=== PATIENT | male | born 1955 | race Caucasian/White ===

== ENCOUNTER 2023-05-18 06:08 | Emergency (ER) | payer OTHER, MEDICARE, SELFPAY ==
[2023-05-18 06:15] VITALS: BP 119/74; PULSE 107; RESP 18; TEMP 36.9; O2SAT 94
[2023-05-18 06:36] VITALS: BP 119/75; PULSE 104; RESP 23; O2SAT 91
--- NOTE | 2023-05-18 06:39 | XRR_ITS ---
PROCEDURE INFORMATION: Exam: XR Chest Exam date and time: 05/18/2023 7:08 AM Age: 68 years old Clinical indication: Cough TECHNIQUE: Imaging protocol: Radiologic exam of the chest. Views: 1 view. COMPARISON: No relevant prior studies available. FINDINGS: Lungs: Streaky bibasilar atelectasis. No consolidation. Pleural spaces: Unremarkable. No pleural effusion. No pneumothorax. Heart/Mediastinum: Unremarkable. No cardiomegaly. Bones/joints: Unremarkable. XR/XR chest 1V portable [id number] IMPRESSION: No acute findings.
--- NOTE | 2023-05-18 06:41 | W.ED.WEAKNES ---
HPI - Weakness General: Chief complaint: Weakness Stated complaint: weakness Time Seen by Provider: 05/18/23 06:26 History of Present Illness: 68-year-old male presents emergency department with complaints of cough fatigue and malaise worse over the previous 1 week. He states he has been exposed to several sick contacts with similar illnesses. He states he does have a dry nonproductive cough and feels generalized myalgias. He states he feels increasingly weak and has not had much energy to eat Associated symptoms: Reports fever(s) and nausea Review of Systems General: Reports: 10 or more systems reviewed and unremarkable except in HPI and below Const: Reports: fever(s), body aches, fatigue and malaise Resp: Reports: non-productive cough GI: Reports: nausea PFSH ED PFSH: Medical History Diabetes Hypertension Stroke Surgical History Hx of eye surgery Social History Smoking and tobacco/nicotine status: never used tobacco/nicotine Physical Exam Narrative: EXAM NARRATIVE: Constitutional: the patient appears well nourished and with normal development. Vital signs reviewed as documented. HENMT: Normocephalic, atraumatic. Extermal ears with normal appearance without drainage. Nose without drainage, normal appearance. Mucus membranes moist. Neck is supple, No jugular venous distension, trachea is midline, no appreciable carotid bruits. No lymphadenopathy. No meningeal signs. Flexion, extension and lateral rotation is without pain. Eyes: Pupils are equal, round, reactive to light and accommodation. No scleral icterus. Extra-ocular movement are intact. Thorax is symmetrical and with equal rise and fall with respirations. Resp: Lungs are clear to auscultation. No wheezes, rales, crackles or ronchi at present. Cardio: Regular rate and rhythm. Positive S1, S2. No appreciable murmurs, rubs or gallops. GI: Abdominal exam reveals normal bowel sounds to all quadrants. No organomegaly. No obvious palpable masses noted. No hepatomegally appreciated. Soft, nontender to palpation. Extremity: Extremities are non-edematous and both femoral and pedal pulses are 2+ and equal bilaterally. Moves all extremities well, sensation in all extremities. Neuro: Alert and oriented x4, person, place, time and situation. Cranial nerves II through XII are grossly intact, there is no focal neurological deficits that I can appreciate at present. Motor strength in the upper and lower extremities are equal and bilateral 5/5. Psych: Cooperative, calm, normal thought process, appropriate judgment. Skin: No lesions, rashes. No gross abnormalities noted. Back: Symmetrical, no obvious deformity, No CVA tenderness Course Vital Signs: Vital signs: Vital Signs Temperature 98.4 F 05/18/23 06:15 Pulse Rate 102 H 05/18/23 06:51 Respiratory Rate 21 H 05/18/23 06:51 Blood Pressure 119/75 05/18/23 06:51 Pulse Oximetry 94 05/18/23 07:10 Oxygen Delivery Me thod Nasal Cannula 05/18/23 07:10 Oxygen Flow Rate 2.5 05/18/23 07:10 MDM - Weakness Medical Decision Making Physical exam completed, will obtain a CBC, CMP, strep screen, COVID screen and influenza a and B as well as a chest x-ray for evaluation. Medical Records I reviewed the patient's medical records. Lab Data I reviewed the patient's lab results. 05/18/23 06:23 05/18/23 06:23 Radiology Impressions Chest X-Ray 05/18/23 06:39 IMPRESSION: No acute findings. Laboratory Results WBC 13.06 10^3/uL (3.29-11.43) H 05/18/23 06:23 RBC 4.86 10^6/uL (3.85-5.65) 05/18/23 06:23 Hgb 14.40 g/dL (11.27-16.99) 05/18/23 06:23 Hct 43.0 % (37-53) 05/18/23 06:23 MCV 88.5 fl (82-101) 05/18/23 06:23 MCH 29.6 pg (27-33) 05/18/23 06: MCHC 33.5 g/dL (30-55) 05/18/23 06:23 RDW 14.2 % (12.1-15.1) 05/18/23 06:23 Plt Count 256 10^3/cmm (157-399) 05/18/23 06:23 MPV 10.0 fL (7.4-10.4) 05/18/23 06: Neut % (Auto) 78.3 % 05/18/23 06: Lymph % (Auto) 12.0 % 05/18/23 06: [place] % (Auto) 9.0 % 05/18/23 06: Eos % (Auto) 0.0 % 05/18/23 06: Baso % (Auto) 0.2 % 05/18/23 06: Neut # (Auto) 10.24 10^3/uL (1.8-7.7) H 05/18/23 06:23 Lymph # (Auto) 1.6 10^3/uL (0.8-4.8) 05/18/23 06: [place] # (Auto) 1.2 10^3/uL (0.2-0.9) H 05/18/23 06:23 Eos # (Auto) 0.0 10^3/uL (0.0-0.8) 05/18/23 06: Baso # (Auto) 0.0 10^3/uL (0.0-0.1) 05/18/23 06: Nucleated RBC % (auto) 0 % 05/18/23 06: Nucleated RBCs # 0.0 /100WBC 05/18/23 06:23 Sodium 133 mmol/L (136-145) L 05/18/23 06:23 Potassium 3.6 mmol/L (3.5-5.1) 05/18/23 06:23 Chloride 89 mmol/L (98-107) L 05/18/23 06:23 Carbon Dioxide 24 mmol/L (22-29) 05/18/23 06:23 Anion Gap 23.6 (5-19) H 05/18/23 06:23 BUN 22 mg/dL (8-23) 05/18/23 06:23 Creatinine 1.5 mg/dL (0.7-1.2) H 05/18/23 06:23 GFR Calculation 46.8 mL/min (90-130) L 05/18/23 06:23 Glucose 255 mg/dL (65-115) H 05/18/23 06:23 Calculated Osmolality 288 mOsm/kg (285-295) 11/26/23 06:23 Calcium 9.2 mg/dL (8.5-10.5) 05/18/23 06:23 Total Bilirubin 0.5 mg/dL (0.15-1.2) 05/18/23 06:23 AST 30 U/L (0-40) 05/18/23 06:23 ALT 48 U/L (0-41) H 05/18/23 06:23 Alkaline Phosphatase 90 U/L (40-130) 05/18/23 06:23 Total Protein 8.1 g/dL (6.6-8.7) 05/18/23 06:23 Albumin 4.2 g/dL (3.5-5.2) 05/18/23 06:23 Globulin 3.9 g/dL (1.3-4.6) 05/18/23 06:23 Influenza Type A Ag negative (Negative) 05/18/23 06:51 Influenza Type B Ag negative (Negative) 05/18/23 06:51 SARS-CoV-2 Ag (Rapid) positive (Negative) H 05/18/23 07:01 Group A Strep Rapid Negative (Negative) 05/18/23 06:51 All radiology interpretation(s) finalized by discharge Discharge Plan Discharge Patient Disposition: Home Clinical Impression: COVID-19 Condition: Stable Prescriptions: New dexamethasone 6 mg tablet 6 mg PO DAILY Qty: 7 0RF albuterol sulfate 90 mcg/actuation HFA aerosol inhaler 2 inh inhalation Q4H PRN (Reason: shortness of breath or wheezing) Qty: 8.5 0RF benzonatate 100 mg capsule 100 mg PO Q6H PRN (Reason: cough) Qty: 20 0RF No Action metformin 500 mg tablet 500 mg PO DAILY Trulicity 0.75 mg/0.5 mL pen injector SUBCUT insulin glargine [Lantus U-100 Insulin] 100 unit/mL solution 10 unit SUBCUT BID Zyrtec 10 mg capsule 10 mg PO DAILY PRN Discharge Orders: Discharge ED (Routine); Ordered 05/18/23 Ordered By: Jonathon Escamilla Referrals: Baumann,Genna, PRODUCTION SHIFT SUPERVISOR [Primary Care Provider] - Discharge Diet: Advance as tolerated Discharge Activity: Resume usual activity Patient Instructions: Opioid Safety, Pain Management Activity Restrictions/Additional Instructions: Activity Restrictions/Additional Instructions: Thank you for choosing [facility] for your healthcare needs today. Please realize that you were seen in the Emergency Department and that we are providing you with an emergency medical screening exam and this may not be complete and all inclusive of all the testing and or medical work-up that you may need to determine your ailment or severity of your illness. It is very important that you follow-up as instructed with your Primary care provider or Specialist for additional evaluation and to discuss your medical treatment plan. You may return to the Emergency Department should you have concerns or if your condition changes or worsens in any way. Coding Level of Care Code ED Aeronautical Drafter for [place]
[2023-05-18 06:46] LABS: Basophils % 0.2 %; Lymphocytes # 1.6 10^3/uL (0.8-4.8); Mean Corpuscular HGB Conc 33.5 g/dL (30-55); Mean Corpuscular Hemoglobin 29.6 pg (27-33); Mean Corpuscular Volume 88.5 fl (82-101); Monocytes # 1.2 10^3/uL (0.2-0.9); Neutrophils # 10.24 10^3/uL (1.8-7.7); Neutrophils % 78.3 %; Nucleated Red Blood Cells % 0 %; Platelet Count 256 10^3/cmm (157-399); Red Blood Count 4.86 10^6/uL (3.85-5.65); Red Cell Distribution Width 14.2 % (12.1-15.1); White Blood Count 13.06 10^3/uL (3.29-11.43)
[2023-05-18 06:51] VITALS: BP 119/75; PULSE 102; RESP 21; O2SAT 91
[2023-05-18 07:10] VITALS: O2SAT 94
--- NOTE | 2023-05-18 07:11 | PC.NURSE ---
Got report from IBIS Henriquez and he stated patient's oxygen sats had been dropping in to the 80's at times. I continued to observe the patient's oxygen drop into the 80's so I placed the patient on 2.5 liter of oxygen via nasal cannula.
[2023-05-18 07:15] LABS: Alanine Aminotransferase 48 U/L (0-41); Albumin Level 4.2 g/dL (3.5-5.2); Alkaline Phosphatase 90 U/L (40-130); Anion Gap 23.6 (5-19); Aspartate Amino Transferase 30 U/L (0-40); Blood Urea Nitrogen 22 mg/dL (8-23); Calcium 9.2 mg/dL (8.5-10.5); Carbon Dioxide 24 mmol/L (22-29); Chloride 89 mmol/L (98-107); Globulin 3.9 g/dL (1.3-4.6); Glomerular Filtration Rate 46.8 mL/min (90-130); Glucose 255 mg/dL (65-115); Osmolality Calculated 288 mOsm/kg (285-295); Potassium 3.6 mmol/L (3.5-5.1); Sodium 133 mmol/L (136-145); Total Bilirubin 0.5 mg/dL (0.15-1.2); Total Protein 8.1 g/dL (6.6-8.7)
[2023-05-18 07:54] LABS: Influenza A by IFA negative (Negative); Influenza B by IFA negative (Negative)
[2023-05-18 07:58] LABS: Rapid Strep A Test Negative (Negative)
[2023-05-18 07:59] LABS: SARS Covid-2 Antigen positive (Negative)
[2023-05-18] MEDS: sodium chloride 0.9% 1,000 ML 999 ML IV (08:02)
== END 2023-05-18 09:18 | disposition home or self-care (01) ==
PROVIDERS: Emergency Provider Internal Medicine; PCP Nurse Practitioner Family
DX: U07.1 COVID-19 (principal); Z79.85 Long-term (current) use of injectable non-insulin antidiabetic drugs; Z79.84 Long term (current) use of oral hypoglycemic drugs; Z79.4 Long term (current) use of insulin; E11.9 Type 2 diabetes mellitus without complications; I10 Essential (primary) hypertension; Z86.73 Personal history of transient ischemic attack (TIA), and cerebral infarction without residual deficits
CPT/HCPCS: 71045; 80053; 85025; 87081; 87426; 87804; 87880; 96360; 99284; J7030

== ENCOUNTER 2023-05-20 16:51 | Inpatient (IN) | payer OTHER, MEDICARE, SELFPAY ==
[2023-05-20] VITALS (24 sets, daily range): BP systolic 77–133; BP diastolic 43–75; PULSE 69–81; RESP 15–21; TEMP 37–37.4; O2SAT 88–96; BMI 27.9; BMI 30.7
--- NOTE | 2023-05-20 17:14 | XRR_ITS ---
PROCEDURE INFORMATION: Exam: XR Chest Exam date and time: 05/20/2023 5:22 PM Age: 68 years old Clinical indication: Cough and shortness of breath; Additional info: SOB TECHNIQUE: Imaging protocol: Radiologic exam of the chest. Views: 1 view. COMPARISON: CR (CHEST, ) 05/18/2023 7:08 AM FINDINGS: Lungs: Low lung volumes. No focal consolidation. Bibasilar atelectasis. Pleural spaces: No pleural effusion. No pneumothorax. Heart/Mediastinum: No cardiomegaly. Bones/joints: No acute findings. XR/XR chest 1V portable [id number] IMPRESSION: No acute findings.
--- NOTE | 2023-05-20 17:14 | ECG_ITS ---
[facility] Test Date: 2023-05-20 Pat Name: Moi Jones Department: Room: Gender: Male Hook Up Driver: : [id number] Requested By: Branden Soria Order Number: [id number] Henry MD: Jennifer Pascal M.D. Measurements Intervals [place] Rate: 75 P: 41 [place]: 147 QRS: 14 QRSD: 98 T: 21 QT: 401 QTc: 449 Interpretive Statements SINUS RHYTHM Normal EKG No previous ECG available for comparison Electronically Signed On 05-22-2023 16:51:08 GANG HEMSTITCHING MACHINE OPERATOR by Jennifer Pascal M.D. [id number]
--- NOTE | 2023-05-20 17:20 | ED_ITS ---
HPI - COVID 2 General: Chief Complaint: COVID symptoms Stated Complaint: Low BP / Covid + Time Seen by Provider: 05/20/23 16:56 Source: patient and EMS Mode of arrival: EMS Limitations: no limitations History of Present Illness: 68-year-old male who has a recent COVID- positive test he states he has had increasing weakness and malaise. Patient was found to be hypotensive as well and having increasing shortness of breath. He is hypotensive. Denies any vomiting or chest pain. COVID 19 common symptoms: positive dyspnea and fatigue; negative fever(s), chills, body aches, headache(s), throat pain, nausea, vomiting or diarrhea COVID 19 other sytmptoms: negative chest pain COVID Results: 2 SARS-CoV-2 Antigen (Rapid) positive (Negative) H 05/18/23 07:0 1 Review of Systems 2 Const: Reports: fatigue; Denies: fever(s), chills, body aches or change in appetite ENMT: Denies: throat pain or dental pain Card: Denies: chest pain Resp: Reports: dyspnea GI: Denies: abdominal pain, nausea, vomiting or diarrhea : Denies: dysuria Musc: Denies: neck pain or back pain Skin/Breast: Denies: rash Neuro: Denies: headache(s) PFSH ED 2 PFSH: Medical History Hypertension Diabetes Stroke Surgical History Hx of eye surgery Social History Smoking and tobacco/nicotine status: never used tobacco/nicotine Physical Exam 2 Const: COMMON NORMALS: patient oriented x3 GENERAL APPEARANCE: ill appearing HENMT: COMMON NORMALS: normocephalic and atraumatic HEAD & SCALP: n ormocephalic and atraumatic Eye: COMMON NORMALS: Equal, round and reactive pupils present and EOMs intact bilaterally PUPIL: Yes Equal, round and reactive pupils present Neck/C-Spine: COMMON NORMALS: full ROM and supple Chest: COMMONS NORMALS: normal inspection of the chest and normal palpation of entire chest wall Resp: COMMON NORMALS: normal respiratory effort, No retractions, No use of accessory muscles and clear to auscultation bilaterally AUSCULTATION: clear to auscultation bilaterally Cardio: COMMON NORMALS: regular rate, regular rhythm and No murmurs present (Cardio) RATE: regular rate RHYTHM: regular rhythm GI: COMMON NORMALS: Normal to inspection, nondistended, normoactive bowel sounds present, Soft to palpation, non-tender and no masses PALPATION: Yes Soft to palpation Extremity: COMMON NORMALS: normal to inspection and full ROM Neuro: COMMON NORMALS: patient oriented x3, moves all extremities and no focal motor deficits Psych: COMMON NORMALS: mental status grossly normal, Normal thought process present and cooperative THOUGHT PROCESS: Normal thought process present Skin: COMMON NORMALS: no rashes or lesions noted and no wounds GENERAL SKIN EXAM: no rashes or lesions noted Course 2 Vital Signs: Vital signs: Vital Signs Temperature 99.4 F 05/20/23 17:00 Pulse Rate 73 05/20/23 19:15 Respiratory Rate 19 H 05/20/23 19:15 Blood Pressure 100/56 05/20/23 19:15 Pulse Oximetry 94 05/20/23 19:15 Oxygen Delivery Me thod Room Air 05/20/23 18:20 MDM - COVID Medical Decision Making Patient presents here with COVID having increased weakness he was hypotensive here. Dehydrated his blood pressure improved after fluids will admit for observation at this time. Medical Records I reviewed the patient's medical records. Lab Data I reviewed the patient's lab results. 05/20/23 18:25 05/20/23 18:25 Radiology Impressions Chest X-Ray 05/20/23 17:14 IMPRESSION: No acute findings. Laboratory Results WBC 9.65 10^3/uL (3.29-11.43) 05/20/23 18:25 RBC 3.84 10^6/uL (3.85-5.65) L 05/20/23 18:25 Hgb 11.40 g/dL (11.27-16.99) 05/20/23 18:25 Hct 34.6 % (37-53) L 05/20/23 18:25 MCV 90.1 fl (82-101) 05/20/23 18:25 MCH 29.7 pg (27-33) 05/20/23 18:25 MCHC 32.9 g/dL (30-55) 05/20/23 18:25 RDW 14.3 % (12.1-15.1) 05/20/23 18:25 Plt Count 227 10^3/cmm (157-399) 05/20/23 18:25 MPV 10.3 fL (7.4-10.4) 05/20/23 18:25 Neut % (Auto) 86.0 % 05/20/23 18:25 Lymph % (Auto) 5.6 % 05/20/23 18:25 [place] % (Auto) 7.2 % 05/20/23 18:25 Eos % (Auto) 0.0 % 05/20/23 18:25 Baso % (Auto) 0.2 % 05/20/23 18:25 Neut # (Auto) 8.30 10^3/uL (1.8-7.7) H 05/20/23 18:25 Lymph # (Auto) 0.5 10^3/uL (0.8-4.8) L 05/20/23 18:25 [place] # (Auto) 0.7 10^3/uL (0.2-0.9) 05/20/23 18:25 Eos # (Auto) 0.0 10^3/uL (0.0-0.8) 05/20/23 18:25 Baso # (Auto) 0.0 10^3/uL (0.0-0.1) 05/20/23 18:25 Nucleated RBC % (auto) 0 % 05/20/23 18:25 Nucleated RBCs # 0.0 /100WBC 05/20/23 18:25 PT 14.20 SECONDS (12.1-14.9) 05/20/23 18:25 INR 1.06 (0.8-1.2) 05/20/23 18:25 Specimen Type Arterial 05/20/23 17:29 Sample Site Radial, right 05/20/23 17:29 ABG pH 7.43 (7.35-7.45) 05/20/23 17:29 ABG pCO2 40.4 mmHg (35-45) 05/20/23 17:29 ABG pO2 64.8 mmHg (80.0-100.0) L 05/20/23 17:29 ABG PO2/FiO2 Ratio 0 05/20/23 17:29 ABG HCO3 26.7 mmol/L (22-26) H 05/20/23 17:29 ABG Base Excess 2.1 mmol/L (-2.0-2.0) H 05/20/23 17:29 Evan Test Pos 05/20/23 17:29 Hematocrit 34.5 % (42-52) L 05/20/23 17:29 Hgb O2 Saturation 93.0 % (95-100) L 05/20/23 17:29 Carboxyhemoglobin 1.3 %THgb (0.4-20.1) 05/20/23 17:29 Methemoglobin < 0.0 % (0.4-1.5) L 05/20/23 17: Total Hemoglobin 11.3 g/dL (14-18) L 05/20/23 17:29 O2 Delivery Device Room air 05/20/23 17: FiO2 21.0 % 05/20/23 17:29 Clinical Exercise Specialist ID [place] 05/20/23 17:29 Sodium 136 mmol/L (136-145) 05/20/23 18:25 Potassium 3.6 mmol/L (3.5-5.1) 05/20/23 18:25 Chloride 98 mmol/L (98-107) 05/20/23 18:25 Carbon Dioxide 24 mmol/L (22-29) 05/20/23 18:25 Anion Gap 17.6 (5-19) 05/20/23 18:25 BUN 36 mg/dL (8-23) H 05/20/23 18:25 Creatinine 1.4 mg/dL (0.7-1.2) H 05/20/23 18:25 GFR Calculation 50.7 mL/min (90-130) L 05/20/23 18:25 Glucose 245 mg/dL (65-115) H 05/20/23 18:25 Calculated Osmolality 298 mOsm/kg (285-295) H 05/20/23 18:25 Lactic Acid 2.5 mmol/L (0.5-2.2) H 05/20/23 18:25 Calcium 7.9 mg/dL (8.5-10.5) L 05/20/23 18:25 Total Bilirubin 0.5 mg/dL (0.15-1.2) 05/20/23 18:25 AST 40 U/L (0-40) 05/20/23 18:25 ALT 46 U/L (0-41) H 05/20/23 18:25 Alkaline Phosphatase 59 U/L (40-130) 05/20/23 18:25 Total Protein 6.5 g/dL (6.6-8.7) L 05/20/23 18:25 Albumin 3.2 g/dL (3.5-5.2) L 05/20/23 18:25 Globulin 3.3 g/dL (1.3-4.6) 05/20/23 18:25 2 SARS-CoV-2 Antigen (Rapid) positive (Negative) H 05/18/23 07:0 1 All radiology interpretation(s) finalized by discharge EKG Data EKG 1: I personally reviewed and interpreted this EKG as follows: EKG interpretation date: 05/20/23 EKG interpretation time: 17:27 Interpretation: nsr hr [address] or t wave abnormalities qrs 98 qtc 430 Discharge Plan Discharge Patient Disposition: Admitted As Inpatient Clinical Impression: COVID-19, Dehydration Condition: Stable Prescriptions: No Action metformin 500 mg tablet 500 mg PO DAILY Trulicity 0.75 mg/0.5 mL pen injector SUBCUT insulin glargine [Lantus U-100 Insulin] 100 unit/mL solution 10 unit SUBCUT BID Zyrtec 10 mg capsule 10 mg PO DAILY PRN dexamethasone 6 mg tablet 6 mg PO DAILY Qty: 7 0RF albuterol sulfate 90 mcg/actuation HFA aerosol inhaler 2 inh inhalation Q4H PRN (Reason: shortness of breath or wheezing) Qty: 8.5 0RF benzonatate 100 mg capsule 100 mg PO Q6H PRN (Reason: cough) Qty: 20 0RF Referrals: Baumann,Genna, LEAD PROJECT ENGINEER [Primary Care Provider] - Coding Level of Care Code ED Network Systems Administrator for [place]
[2023-05-20 17:42] LABS: ABG PCO2 40.4 mmHg (35-45); ABG PH Result 7.43 (7.35-7.45); Arterial Blood Gas Hematocrit 34.5 % (42-52); Base Excess ABG 2.1 mmol/L (-2.0-2.0); Blood Gas Allen Test Pos; Blood Gas Operator Identificat MONRO; Blood Gas Sample Site Radial, right; Blood Gas Sample Type Arterial; Carboxyhemoglobin 1.3 %THgb (0.4-20.1); HCO3 ABG 26.7 mmol/L (22-26); Methemoglobin < 0.0 % (0.4-1.5); Oxygen Device ROOM AIR; PO2 ABG 64.8 mmHg (80.0-100.0); PO2 FiO2 Ratio Arterial Blood 0; Total Hemoglobin 11.3 g/dL (14-18)
[2023-05-20] MEDS: cefTRIAXone 1,000 MG in sodium chloride 0.9% (plus) 50 ML 100 MG IV (18:24)
[2023-05-20] MEDS: azithromycin 500 MG in sodium chloride 0.9% 250 ML 250 MG IV (18:49)
[2023-05-20 19:01] LABS: Basophils % 0.2 %; Hematocrit 34.6 % (37-53); Lymphocytes # 0.5 10^3/uL (0.8-4.8); Lymphocytes % 5.6 %; Mean Corpuscular HGB Conc 32.9 g/dL (30-55); Mean Corpuscular Hemoglobin 29.7 pg (27-33); Mean Corpuscular Volume 90.1 fl (82-101); Mean Platelet Volume 10.3 fL (7.4-10.4); Monocytes # 0.7 10^3/uL (0.2-0.9); Monocytes % 7.2 %; Nucleated Red Blood Cells % 0 %; Platelet Count 227 10^3/cmm (157-399); Red Blood Count 3.84 10^6/uL (3.85-5.65); Red Cell Distribution Width 14.3 % (12.1-15.1); White Blood Count 9.65 10^3/uL (3.29-11.43)
[2023-05-20 19:20] LABS: INR 1.06 (0.8-1.2)
[2023-05-20 19:22] LABS: Alanine Aminotransferase 46 U/L (0-41); Albumin Level 3.2 g/dL (3.5-5.2); Alkaline Phosphatase 59 U/L (40-130); Aspartate Amino Transferase 40 U/L (0-40); Blood Urea Nitrogen 36 mg/dL (8-23); Calcium 7.9 mg/dL (8.5-10.5); Carbon Dioxide 24 mmol/L (22-29); Chloride 98 mmol/L (98-107); Globulin 3.3 g/dL (1.3-4.6); Glomerular Filtration Rate 50.7 mL/min (90-130); Glucose 245 mg/dL (65-115); Osmolality Calculated 298 mOsm/kg (285-295); Sodium 136 mmol/L (136-145); Total Bilirubin 0.5 mg/dL (0.15-1.2); Total Protein 6.5 g/dL (6.6-8.7)
[2023-05-20 19:23] LABS: Lactic Sepsis W/Reflex 2.5 mmol/L (0.5-2.2)
[2023-05-20 19:32] LABS: Anion Gap 17.6 (5-19); Potassium 3.6 mmol/L (3.5-5.1)
--- NOTE | 2023-05-20 19:33 | P.HP_ITS ---
Providers/Chief Complaint 2 Primary Care Provider: GEOVANNA Velez Chief Complaint: Low BP / Covid + History of Present Illness Moi Jones is a 68 year old male who was diagnosed with COVID-19 this Friday, he started experiencing symptoms last around , patient was discharged home after he was diagnosed with COVID-19 he was not requiring oxygen however he returned because of generalized weakness malaise and low blood pressure. Patient has not noticed diarrhea, or chest pain. He is endorsing generalized weakness, malaise , his last bowel movement was couple days ago., In the ER he was hypotensive required IV fluid bolus which improved his blood pressure at the time of my evaluation he is not requiring oxygen, he is afebrile. Endorsing generalized weakness fatigue still not feeling hungry. Review of Systems 2 Const: Reports: chills, body aches, change in appetite, change in weight, fatigue and malaise ENMT: Denies: throat pain Card: Denies: chest pain Resp: Reports: dyspnea GI: Denies: abdominal pain : Denies: flank pain Musc: Denies: neck pain Skin/Breast: Denies: rash Neuro: Denies: headache(s) Medications/Allergies Home Medications Medication Instructions Recorded Confirmed Last Taken Type cetirizine 10 mg capsule (Zyrtec) 10 mg PO DAILY PRN 02/04/23 02/18/23 Unknown History dulaglutide 0.75 mg/0.5 mL mg SUBCUT 02/04/23 02/18/23 Unknown History subcutaneous pen injector (Trulicity) insulin glargine 100 unit/mL 10 unit SUBCUT BID 02/04/23 02/18/23 Unknown History subcutaneous solution (Lantus U-100 Insulin) metformin 500 mg tablet 500 mg PO DAILY 02/04/23 02/18/23 Unknown History albuterol sulfate 90 mcg/actuation 2 inh inhalation Q4H PRN shortness 05/18/23 Unknown Rx aerosol inhaler of breath or wheezing #8.5 grams benzonatate 100 mg capsule 100 mg PO Q6H PRN cough #20 caps 05/18/23 Unknown Rx dexamethasone 6 mg tablet 6 mg PO DAILY #7 tabs 05/18/23 Unknown Rx Allergies Allergy/AdvReac Type Severity Reaction Status Date / Time penicillin G Allergy rash Verified 05/18/23 06:18 mold Allergy ALGY-Anaphy Uncoded 05/18/23 06:18 laxis PFSH Acute 2 PFSH: Medical History Hypertension Diabetes Stroke Surgical History Hx of eye surgery Social History Smoking and tobacco/nicotine status: never used tobacco/nicotine Vitals/I&O/Wt Last Vital Signs Temp 99.4 F 05/20/23 17:00 Pulse 73 05/20/23 19:15 Resp 19 H 05/20/23 19:15 BP 100/56 05/20/23 19:15 Pulse Ox 94 05/20/23 19:15 O2 Del Method Room Air 05/20/23 18:20 05/20/23 05/20/23 05/20/23 06:59 14:59 22:59 Intake Total 2218.08 / 2218.08 Balance 2218.08 / 2218.08 Weight last 48 hrs Weight 73.936 kg Physical Exam 2 Narrative: Awake and alert Signs of dehydration Currently on room air Pleasant and cooperative S1, S2 Blood pressure stable Nonfocal neuro exam Pleasant and cooperative Lower extremity no edema Abdomen soft Bilateral breath sounds without rhonchi or crackles Data 05/20/23 18:25 05/20/23 18:25 Micro: Microbiology 05/20/23 18:17 Blood Culture - Preliminary Blood SPECIMEN COLLECTED 05/20/23 18:20 Blood Culture - Preliminary Blood SPECIMEN COLLECTED A&P Assessment and plan (1) Dehydration: (2) COVID-19: Plan Dehydration related to COVID-19 Patient has not been eating well Insomnia Generalized weakness Start IV fluids with gentle hydration Blood pressure has improved with IV fluid hydration Acute on chronic kidney disease anticipate improvement with IV fluid hydration Start remdesivir and Decadron Consistent carb diet with sliding scale Full code We will request physical therapy, Attestations 2 Medical Necessity Statement*: Anticipating discharge within 48 hours Diagnoses Dehydration E86.0 COVID-19 U07.1
[2023-05-20] MEDS: sodium chloride 0.9% 500 ML 999 ML IV (19:47)
[2023-05-20 20:41] LABS: Reflex Lactate Order REFLEX LACTIC ORDERD
[2023-05-20 21:33] LABS: Lactic Acid level (Lactate) 1.4 mmol/L (0.5-2.2)
[2023-05-20 22:45] LABS: Estmated Average Glucose 223; Hemoglobin A1C 9.4 % (4.0-6.0)
[2023-05-20] MEDS: sodium chloride 0.9% 1,000 ML 75 ML IV (23:03)
[2023-05-20] MEDS: heparin 5,000 unit/mL INJ 1 mL 5000 UNIT SUBCUT (23:03)
[2023-05-20] MEDS: remdesivir 100 MG in sodium chloride 0.9% (100 ml) 100 ML IV (23:03)
[2023-05-20] MEDS: insulin glargine 100 units/1 mL 10 UNIT SUBCUT (23:03)
[2023-05-21] VITALS (12 sets, daily range): BP systolic 113–158; BP diastolic 62–80; PULSE 76–87; RESP 16–20; TEMP 37.1–39.1; O2SAT 90–97; BMI 30.7
[2023-05-21 05:20] LABS: ABG PCO2 38.8 mmHg (35-45); ABG PH Result 7.44 (7.35-7.45); Arterial Blood Gas Hematocrit 34.1 % (42-52); Base Excess ABG 2.3 mmol/L (-2.0-2.0); Blood Gas Sample Site Brachial, right; Blood Gas Sample Type Arterial; HCO3 ABG 26.5 mmol/L (22-26); Oxygen Device NC; PO2 ABG 66.7 mmHg (80.0-100.0)
[2023-05-21] MEDS: acetaminophen 500 mg Tablet PO ×3 (05:36→21:50)
[2023-05-21 06:26] LABS: Glucose Point of Care 247 mg/dL (70-110)
[2023-05-21 06:46] LABS: Basophils % 0.1 %; Hematocrit 31.9 % (37-53); Lymphocytes # 0.6 10^3/uL (0.8-4.8); Lymphocytes % 6.5 %; Mean Corpuscular HGB Conc 33.5 g/dL (30-55); Mean Corpuscular Hemoglobin 29.5 pg (27-33); Mean Corpuscular Volume 87.9 fl (82-101); Mean Platelet Volume 9.8 fL (7.4-10.4); Monocytes # 0.5 10^3/uL (0.2-0.9); Monocytes % 5.2 %; Neutrophils # 8.28 10^3/uL (1.8-7.7); Neutrophils % 87.6 %; Nucleated Red Blood Cells % 0 %; Platelet Count 243 10^3/cmm (157-399); Red Blood Count 3.63 10^6/uL (3.85-5.65); Red Cell Distribution Width 14.5 % (12.1-15.1); White Blood Count 9.45 10^3/uL (3.29-11.43)
[2023-05-21 07:01] LABS: Anion Gap 17.1 (5-19); Blood Urea Nitrogen 30 mg/dL (8-23); Calcium 7.6 mg/dL (8.5-10.5); Carbon Dioxide 22 mmol/L (22-29); Chloride 97 mmol/L (98-107); Ferritin 462 ng/mL (30-400); Glomerular Filtration Rate 60.6 mL/min (90-130); Glucose 247 mg/dL (65-115); Osmolality Calculated 290 mOsm/kg (285-295); Phosphorus 1.5 mg/dL (2.5-4.5); Potassium 3.1 mmol/L (3.5-5.1); Sodium 133 mmol/L (136-145)
[2023-05-21] MEDS: insulin lispro 100 unit/1 mL SUBCUT ×3 (09:47→21:50)
[2023-05-21] MEDS: cefTRIAXone 1,000 MG in sodium chloride 0.9% (plus) 50 ML 100 MG IV (09:48)
[2023-05-21] MEDS: dexamethasone 4 mg Tablet 6 MG PO (09:49)
[2023-05-21] MEDS: sennosides-docusate Tablet 1 TAB PO (09:49)
[2023-05-21] MEDS: insulin glargine 100 units/1 mL 10 UNIT SUBCUT ×2 (09:56→17:54)
--- NOTE | 2023-05-21 10:26 | PC.CHAP ---
Pastoral Care Encounter/Spiritual Assessment Type of Contact [] Declined group controller visit [] Patient/Family/Request visit [] Outpatient visit [] Follow-up visit [] Physician referral [] Code/Alert [x] Routine visit [] Staff referral [] Actively dying [] Patient sleeping [] Family support [] [] Out of room [] Palliative care [] [] Receiving care in room [] Pre-surgical visit [] Trauma [] Long length of stay [] ICU visit [] Other: Relational/Emotional Strength [] Patient feels connected with others/family/visitors/staff [] Distress [] Loneliness/isolation [] Abandonment Spirituality of Patient [] Person of Shahnaz [] Attends Sikhism of their Shahnaz [] Believes in Prayer [] Reads Bible or Yarsani materials [] There are Spiritual issues to be addressed Business Support Coordinator Interventions [x] Prayer [] Active listening [] Non-anxious presence [] Spiritual/emotional support [] Crisis/trauma care [] Spiritual counseling [] Bereavement support [] Provided bereavement packet [] Provided Bible/devotional materials [] Provided toy/stuffed animal, coloring book to patient or family member [] Provided Communion [] Anointing/[place] [] Salvation [] Completed spiritual assessment [] Other: Impact on Illness or Injury [] Angry [] Fearful [] Anxious [] Often cries [] Exhaustion [] Unable to work [] Unable to attend orthodox [] Unable to walk/stand [] Unable to read [] Unable to drive [] Unable to eat/drink [] Unable to sleep [] Unable to be with family [] Patient intubated [] Other: Summary Moi is a COVID patient, prayed outsidee his room Time spent with patient 5 min
--- NOTE | 2023-05-21 10:28 | USCV_ITS ---
Moi Jones Age: 68 Gender: M : 1955 Exam Date: 05/21/2023 14:16 Ordering Phys: Lew Rangel MD Technologist: Anders Cespedes Exam Location: [facility] [place] Indication: sob BP: 125 / 72 HR: 82 Rhythm: Sinus Technical Quality: Adequate MEASUREMENTS (Male / Female) Normal Values 2D ECHO LV Diastolic Diameter PLAX 4.5 cm 4.2 - 5.9 / 3.9 - 5.3 cm LV Systolic Diameter PLAX 2.8 cm IVS Diastolic Thickness 1.2 cm 0.6 - 1.0 / 0.6 - 0.9 cm IVS Systolic Thickness 1.1 cm LVPW Diastolic Thickness 1.2 cm 0.6 - 1.0 / 0.6 - 0.9 cm LVPW Systolic Thickness 1.4 cm LVOT Diameter 1.9 cm LV Ejection Fraction 2D Teich 68.8 % LV Ejection Fraction MOD 2C 61.7 % LV Ejection Fraction 2C AL 62.0 % LA Diameter 4.0 cm M-MODE Aortic Annulus Diameter 3.2 cm LA Ao Ratio MM 1.5 MV E Point Septal Separation 0.8 cm DOPPLER AV Peak Velocity 103.0 cm/s LVOT Peak Velocity 94.0 cm/s AV Area Cont Eq vti 3.0 cm squared AV Area Cont Eq pk 2.6 cm squared MV Area PHT 4.5 cm squared Mitral E to A Ratio 1.1 MV E' Velocity 58.0 cm/s Mitral E to MV E' Ratio 11.2 Mitral E to LV E' Lateral Ratio 10.5 Mitral E to LV E' Septal Ratio 12.2 TR Peak Velocity 152.3 cm/s TR Peak Gradient 9.3 mmHg TV Peak E Velocity 103.0 cm/s Right Atrial Pressure 3.0 mmHg Pulmonary Artery Systolic Pressu 12.3 mmHg RV Acceleration Time 0.1 s FINDINGS Left Ventricle Mild left ventricular hypertrophy. Normal left ventricular size, systolic function, with no regional wall motion abnormalities. Left ventricular ejection fraction is estimated at 65%. Right Ventricle Normal right ventricular size and systolic function. Right Atrium Normal right atrial size. Left Atrium Normal left atrial size. Mitral Valve Thickened mitral valve. Trace mitral valve regurgitation. Aortic Valve Structurally trileaflet aortic valve. Thickened aortic valve. No aortic valve stenosis. Trace aortic valve regurgitation. Tricuspid Valve Structurally normal tricuspid valve. Pulmonic Valve Pulmonic valve not well visualized. Trace pulmonary valve regurgitation. Pericardium No pericardial effusion. Aorta Normal size aortic root and proximal ascending aorta. IVC Inferior vena cava not visualized. CONCLUSIONS Mild concentric LVH. Normal LV systolic function. Estimated LVEF normal at 65%. No significant valvular abnormality noted. Normal chamber sizes. IVC not well visualized, however RV and pulmonary pressure appears to be normal as tricuspid valve gradient is normal. Jennifer Pascal MD (Electronically Signed) Final Date: 21 May 2023 16:03 S
[2023-05-21] MEDS: benzonatate 100 mg Capsule PO ×3 (10:57→21:50)
[2023-05-21] MEDS: heparin 5,000 unit/mL INJ 1 mL 5000 UNIT SUBCUT ×2 (10:58→22:58)
[2023-05-21 11:13] LABS: Procalcitonin 0.43 ng/mL (0-0.5); Vitamin B12 496 pg/mL (232-1245)
[2023-05-21 11:24] LABS: Iron 14 ug/dL (59-158); Total Iron Binding Capacity 175 mcg/dl; Unsaturated Iron Binding 161 ug/dL (112-347)
[2023-05-21 11:51] LABS: Glucose Point of Care 109 mg/dL (70-110)
[2023-05-21 12:08] LABS: Blood Urine 2+ (Negative); Glucose Urine UA 2+ (Normal); Ketones Urine Negative (Negative); Nitrate Urine Negative (Negative); Protein Urine Trace (Negative); Specific Gravity, Urine 1.015 (1.005-1.030); Urine Appearance Clear (CLEAR); Urine Color Yellow (Yellow); pH Urine 5 (5-7)
[2023-05-21 12:09] LABS: Add Urine Microscopic? YES; Bilirubin Urine Neg (Negative); Leukocyte Esterase Urine Negative (Negative); Urobilinogen Urine Norm (Negative)
[2023-05-21 12:18] LABS: Add Urine Culture? No; Amorphous Sediment Urine TRACE /hpf; Bacteria Urine TRACE /hpf; Mucus Urine 1+ /hpf; RBC Urine RARE /hpf (0-2); Squamous Epithelial Cell Urine RARE /hpf (0-5); WBC Urine RARE /hpf (0-5)
[2023-05-21] MEDS: sodium chloride 0.9% 1,000 ML 75 ML IV (13:52)
[2023-05-21] MEDS: ipratropium-albuterol 3 mL Neb INHALATION (14:02)
--- NOTE | 2023-05-21 15:06 | P.PN_ITS ---
Subjective 2 Subjective: H&P and labs appreciated. Patient seen with caregiver at bedside. Patient states he is feeling weak, currently on 3 L of oxygen supplementation saturations have more than 92%. Denies any nausea, vomiting, headache. States cough is better. Tmax since admission 102.4 Fahrenheit. Vitals/I&O/Wt Last Vital Signs Temp 99.2 F 05/21/23 12:00 Pulse 82 05/21/23 14:14 Resp 16 05/21/23 14:00 BP 158/71 05/21/23 12:00 Pulse Ox 97 05/21/23 14:00 O2 Del Method Nasal Cannula 05/21/23 14:00 O2 Flow Rate 3 05/21/23 14:00 05/21/23 05/21/23 05/21/23 06:59 14:59 22:59 Intake Total 220 / 3238.08 1050 / 1050 Balance 220 / 3238.08 1050 / 1050 Weight last 48 hrs Weight 80.014 kg Weight 80.014 kg Weight 73.936 kg Physical Exam 2 Narrative: General: No acute distress, AO x3, On nasal cannula, dehydrated, weak and tired appearing HEENT: PERRLA, pupils bilaterally equal and reactive Chest: Normal vesicular breath sounds, occasional rhonchi all over lung lopez, equal good air entry bilaterally CVS: S1-S2 regular, no murmurs, no tachycardia, no gallops, no rubs Abdomen: Soft, nontender, no organomegaly, bowel sounds present Neuro: No focal deficits, no facial deformity, AO x3, power 5/5 in all limbs Data 05/21/23 06:29 05/21/23 06:29 Micro: Microbiology 05/20/23 18:17 Blood Culture - Preliminary Blood SPECIMEN COLLECTED 05/20/23 18:20 Blood Culture - Preliminary Blood SPECIMEN COLLECTED A&P Assessment and plan (1) Hypoxia: (2) COVID-19: Hypoxia secondary to COVID-19 pneumonia: Mild disease. Oxygen supplementation keeping saturation over 88%. Dexamethasone 6 mg daily. Remdesivir to finish a 5-day course. DuoNeb every 6 hour, budesonide twice daily Pulmonary toilet with incentive spirometry flutter valve. We will monitor inflammatory markers including CRP, D-dimer every 48 hours. Check sputum culture, procalcitonin, urine Legionella, bacterial antigen, blood culture. Procalcitonin negative. Low suspicion of bacterial infection for now. For now continue with IV ceftriaxone started on admission. Given hypoxia will try to keep patient as negative as possible. Check echocardiogram. Lasix as per fluid status. Strict input output charting, daily weights. (3) Dehydration: Continue with IV fluids with normal saline at 75 cc/h. Monitor for fluid overload. (4) Type 2 diabetes mellitus: Check A1c. Continue with Lantus 10 units twice daily, sliding scale before meals and at bedtime. Carb consistent diet. (5) Hypertension: Goal blood pressure less than 140/90 mmHg. At home takes lisinopril 40 mg oral daily, chlorthalidone 25 mg daily, Coreg 12.5 mg twice daily. Currently blood pressure stable off antihypertensives. Will continue to monitor and restart antihypertensives as needed. (6) Acute kidney injury: Do not have baseline creatinine. Creatinine on admission 1.4 trending down to 1.2. Most likely mild TALON in setting of dehydration. Medical reconciliation done for nephrotoxic drugs. Plan Full code Carb consistent cardiac diet Protonix for PUD prophylaxis Heparin 5000 every 12 hourly for DVT prophylaxis. Attestations 2 Medical Necessity Statement*: Switch to inpatient for further evaluation and management of hypoxia in setting of COVID-19, dehydration Diagnoses Hypoxia R09.02 COVID-19 U07.1 Dehydration E86.0 Type 2 diabetes mellitus E11.9 Hypertension I10 Acute kidney injury N17.9
[2023-05-21 17:13] LABS: Glucose Point of Care 179 mg/dL (70-110)
[2023-05-21] MEDS: atorvastatin 40 mg Tablet 80 MG PO (21:07)
[2023-05-21 21:17] LABS: Glucose Point of Care 291 mg/dL (70-110)
[2023-05-21] MEDS: remdesivir 100 MG in sodium chloride 0.9% (100 ml) 100 ML IV (22:59)
[2023-05-22] VITALS (12 sets, daily range): BP systolic 118–160; BP diastolic 68–82; PULSE 64–77; RESP 15–19; TEMP 37–37.9; O2SAT 91–95
[2023-05-22] MEDS: ipratropium-albuterol 3 mL Neb INHALATION ×4 (01:41→20:34)
[2023-05-22] MEDS: sodium chloride 0.9% 1,000 ML 75 ML IV (05:02)
[2023-05-22] MEDS: benzonatate 100 mg Capsule PO ×4 (05:02→21:59)
[2023-05-22 05:43] LABS: Basophils % 0.1 %; Lymphocytes # 1.1 10^3/uL (0.8-4.8); Lymphocytes % 9.7 %; Mean Corpuscular HGB Conc 32.9 g/dL (30-55); Mean Corpuscular Volume 88.4 fl (82-101); Mean Platelet Volume 9.6 fL (7.4-10.4); Monocytes # 0.7 10^3/uL (0.2-0.9); Monocytes % 6.2 %; Neutrophils # 9.03 10^3/uL (1.8-7.7); Neutrophils % 82.3 %; Nucleated Red Blood Cells % 0 %; Platelet Count 251 10^3/cmm (157-399); Red Blood Count 3.96 10^6/uL (3.85-5.65); Red Cell Distribution Width 14.6 % (12.1-15.1); White Blood Count 10.98 10^3/uL (3.29-11.43)
--- NOTE | 2023-05-22 06:00 | XR_ITS ---
WS: [id number] Portable AP upright chest, 05/22/2023 Clinical Data: covid Comparison: Portable chest, 05/20/2023 Findings: There is patchy bibasilar opacification which has not changed. There is a poor inspiratory effort. The heart is slightly enlarged. No pneumothorax is seen. The pulmonary vascularity is not inc reased. Monitor leads are on the chest wall. Impression: No change in bibasilar pulmonary opacifications.
[2023-05-22 06:15] LABS: C Reactive Protein 193.5 mg/L (0.0-4.9); Chol HDL Ratio 2.31 mg/dL (1.0-5.00); Cholesterol 67 mg/dL (0-200); HDL Cholesterol 29 mg/dL (60-100); LDL Cholesterol Calculated 19 mg/dL (50-129); Magnesium 2.1 mg/dL (1.7-2.3); Phosphorus 2.2 mg/dL (2.5-4.5); Triglycerides 96 mg/dL (0-150); VLDL Cholestrol Calculation 19 mg/dL (0-30)
[2023-05-22 06:16] LABS: Alanine Aminotransferase 66 U/L (0-41); Albumin Level 2.9 g/dL (3.5-5.2); Alkaline Phosphatase 56 U/L (40-130); Anion Gap 14.7 (5-19); Aspartate Amino Transferase 73 U/L (0-40); Blood Urea Nitrogen 21 mg/dL (8-23); Carbon Dioxide 29 mmol/L (22-29); Chloride 98 mmol/L (98-107); Globulin 3.4 g/dL (1.3-4.6); Glomerular Filtration Rate 74.8 mL/min (90-130); Glucose 204 mg/dL (65-115); Osmolality Calculated 295 mOsm/kg (285-295); Potassium 3.7 mmol/L (3.5-5.1); Sodium 138 mmol/L (136-145); Total Bilirubin 0.4 mg/dL (0.15-1.2); Total Protein 6.3 g/dL (6.6-8.7)
[2023-05-22 06:28] LABS: Folate Level 19.9 ng/mL (4.5-32.2)
[2023-05-22 06:44] LABS: Glucose Point of Care 208 mg/dL (70-110)
[2023-05-22] MEDS: budesonide 0.5 mg/2 mL Neb INHALATION ×2 (08:41→20:34)
[2023-05-22] MEDS: cefTRIAXone 1,000 MG in sodium chloride 0.9% (plus) 50 ML 100 MG IV (10:46)
[2023-05-22] MEDS: insulin lispro 100 unit/1 mL SUBCUT ×3 (10:48→21:59)
[2023-05-22] MEDS: heparin 5,000 unit/mL INJ 1 mL 5000 UNIT SUBCUT ×2 (10:50→22:00)
[2023-05-22] MEDS: aspirin 81 mg EC Tablet PO (10:52)
[2023-05-22] MEDS: dexamethasone 4 mg Tablet 6 MG PO (10:52)
[2023-05-22] MEDS: pantoprazole DR 40 mg Tablet PO (10:52)
[2023-05-22] MEDS: insulin glargine 100 units/1 mL 10 UNIT SUBCUT ×2 (10:55→17:44)
[2023-05-22] MEDS: sennosides-docusate Tablet 1 TAB PO (10:55)
[2023-05-22] MEDS: duloxetine 60 mg Capsule PO (10:55)
[2023-05-22 11:26] LABS: Glucose Point of Care 229 mg/dL (70-110)
--- NOTE | 2023-05-22 14:37 | P.PN_ITS ---
Subjective 2 Subjective: No acute events overnight. Today morning seen with family numbers at bedside. Patient sitting up in chair. States he is feeling a lot better, feeling less weak. Able to walk around in the room and to the bathroom by himself. On 1 L of oxygen supplementation saturating more than 90%. Tmax last night 101.5 Fahrenheit. Blood work appreciated. Vitals/I&O/Wt Last Vital Signs Temp 99.8 F H 05/22/23 11:59 Pulse 76 05/22/23 13:13 Resp 16 05/22/23 13:13 BP 160/82 05/22/23 11:59 Pulse Ox 94 05/22/23 13:13 O2 Del Method Nasal Cannula 05/22/23 13:13 O2 Flow Rate 1 05/22/23 13:13 05/21/23 05/22/23 05/22/23 22:59 06:59 14:59 Intake Total 480 / 1530 1100 / 2630 170 / 170 Balance 480 / 1530 1100 / 2630 170 / 170 Weight last 48 hrs Weight 76.005 kg Weight 80.014 kg Weight 80.014 kg Weight 73.936 kg Physical Exam 2 Narrative: General: No acute distress, AO x3, On nasal cannula, dehydrated, weak and tired appearing HEENT: PERRLA, pupils bilaterally equal and reactive Chest: Normal vesicular breath sounds, occasional rhonchi all over lung lopez, equal good air entry bilaterally CVS: S1-S2 regular, no murmurs, no tachycardia, no gallops, no rubs Abdomen: Soft, nontender, no organomegaly, bowel sounds present Neuro: No focal deficits, no facial deformity, AO x3, power 5/5 in all limbs Data 05/22/23 05:20 05/22/23 05:20 Micro: Microbiology 05/21/23 11:14 Legionella Urinary Antigen - Final Unknown Source 05/21/23 11:14 Bacterial Antigens - Final Urine Kidney 05/20/23 18:17 Blood Culture - Preliminary Blood NEGATIVE TO DATE 05/20/23 18:20 Blood Culture - Preliminary Blood NEGATIVE TO DATE A&P Assessment and plan (1) Hypoxia: (2) COVID-19: Hypoxia secondary to COVID-19 pneumonia: Mild disease. Oxygen supplementation keeping saturation over 88%. Dexamethasone 6 mg daily. Remdesivir to finish a 5-day course. DuoNeb every 6 hour, budesonide twice daily Pulmonary toilet with incentive spirometry flutter valve. We will monitor inflammatory markers including CRP, D-dimer every 48 hours. Check sputum culture, procalcitonin, urine Legionella, bacterial antigen, blood culture. Procalcitonin negative. Low suspicion of bacterial infection for now. For now continue with IV ceftriaxone started on admission. Given hypoxia will try to keep patient as negative as possible. Check echocardiogram. Lasix as per fluid status. Strict input output charting, daily weights. (3) Dehydration: Continue with IV fluids with normal saline at 75 cc/h. Monitor for fluid overload. (4) Type 2 diabetes mellitus: Check A1c. Continue with Lantus 10 units twice daily, sliding scale before meals and at bedtime. Carb consistent diet. (5) Hypertension: Goal blood pressure less than 140/90 mmHg. At home takes lisinopril 40 mg oral daily, chlorthalidone 25 mg daily, Coreg 12.5 mg twice daily. Currently blood pressure stable off antihypertensives. Will continue to monitor and restart antihypertensives as needed. (6) Acute kidney injury: Do not have baseline creatinine. Creatinine on admission 1.4 trending down to 1.2. Most likely mild TALON in setting of dehydration. Medical reconciliation done for nephrotoxic drugs. Plan Full code Carb consistent cardiac diet Protonix for PUD prophylaxis Heparin 5000 every 12 hourly for DVT prophylaxis. Plan for the day: Continue with dexamethasone and remdesivir. Will finish a 5-day course of remdesivir. Oxygen supplementation keeping saturation over 90%. Aggressive pulmonary toilet with I-S and Acapella. TALON has resolved. Will hold off on any further IV fluids. Patient able to maintain oral intake. Blood pressure slightly elevated. Goal blood pressure less than 140/90 mmHg. Will restart home dose of amlodipine. Continue to hold off on home dose of Coreg and chlorthalidone. Attestations 2 Medical Necessity Statement*: Requires further hospitalization for management of hypoxia in setting of COVID- 19 while patient needs IV remdesivir, dehydration leading to TALON which is resolving Diagnoses Hypoxia R09.02 COVID-19 U07.1 Dehydration E86.0 Type 2 diabetes mellitus E11.9 Hypertension I10 Acute kidney injury N17.9
[2023-05-22] MEDS: amlodipine 10 mg Tablet PO (15:20)
[2023-05-22 15:59] LABS: Glucose Point of Care 136 mg/dL (70-110)
[2023-05-22 21:20] LABS: Glucose Point of Care 237 mg/dL (70-110)
[2023-05-22] MEDS: atorvastatin 40 mg Tablet 80 MG PO (21:59)
[2023-05-22] MEDS: remdesivir 100 MG in sodium chloride 0.9% (100 ml) 100 ML IV (22:00)
[2023-05-23] VITALS (11 sets, daily range): BP systolic 118–146; BP diastolic 73–82; PULSE 64–74; RESP 15–18; TEMP 36.6–39.3; O2SAT 90–97
[2023-05-23] MEDS: ipratropium-albuterol 3 mL Neb INHALATION ×3 (02:35→14:24)
[2023-05-23] MEDS: benzonatate 100 mg Capsule PO ×4 (03:48→22:22)
[2023-05-23 05:46] LABS: Magnesium 1.8 mg/dL (1.7-2.3); Phosphorus 2.9 mg/dL (2.5-4.5)
[2023-05-23 06:45] LABS: Glucose Point of Care 199 mg/dL (70-110)
[2023-05-23] MEDS: cefTRIAXone 1,000 MG in sodium chloride 0.9% (plus) 50 ML 100 MG IV (07:56)
[2023-05-23] MEDS: insulin glargine 100 units/1 mL 10 UNIT SUBCUT ×2 (07:57→17:18)
[2023-05-23] MEDS: insulin lispro 100 unit/1 mL SUBCUT ×3 (07:57→22:22)
[2023-05-23] MEDS: pantoprazole DR 40 mg Tablet PO (07:58)
[2023-05-23] MEDS: aspirin 81 mg EC Tablet PO (07:58)
[2023-05-23] MEDS: amlodipine 10 mg Tablet PO (07:58)
[2023-05-23] MEDS: ferrous gluconate 324 mg Tablet PO (07:58)
[2023-05-23] MEDS: duloxetine 60 mg Capsule PO (07:58)
[2023-05-23] MEDS: dexamethasone 4 mg Tablet 6 MG PO (07:58)
[2023-05-23 08:43] LABS: Basophils % 0.1 %; Hematocrit 36.4 % (37-53); Lymphocytes # 1.1 10^3/uL (0.8-4.8); Lymphocytes % 11.7 %; Mean Corpuscular HGB Conc 33.5 g/dL (30-55); Mean Corpuscular Hemoglobin 29.4 pg (27-33); Mean Corpuscular Volume 87.7 fl (82-101); Mean Platelet Volume 10.5 fL (7.4-10.4); Monocytes # 0.9 10^3/uL (0.2-0.9); Monocytes % 9.8 %; Neutrophils # 7.06 10^3/uL (1.8-7.7); Neutrophils % 75.2 %; Nucleated Red Blood Cells % 0 %; Platelet Count 297 10^3/cmm (157-399); Red Blood Count 4.15 10^6/uL (3.85-5.65); Red Cell Distribution Width 14.5 % (12.1-15.1); White Blood Count 9.39 10^3/uL (3.29-11.43)
[2023-05-23] MEDS: acetaminophen 500 mg Tablet PO (08:58)
[2023-05-23] MEDS: budesonide 0.5 mg/2 mL Neb INHALATION (09:02)
[2023-05-23 09:45] LABS: Alanine Aminotransferase 69 U/L (0-41); Alkaline Phosphatase 64 U/L (40-130); Anion Gap 15.1 (5-19); Aspartate Amino Transferase 73 U/L (0-40); Blood Urea Nitrogen 17 mg/dL (8-23); Calcium 7.9 mg/dL (8.5-10.5); Carbon Dioxide 28 mmol/L (22-29); Chloride 93 mmol/L (98-107); Globulin 3.2 g/dL (1.3-4.6); Glomerular Filtration Rate 74.8 mL/min (90-130); Glucose 178 mg/dL (65-115); Osmolality Calculated 282 mOsm/kg (285-295); Potassium 3.1 mmol/L (3.5-5.1); Sodium 133 mmol/L (136-145); Total Bilirubin 0.5 mg/dL (0.15-1.2); Total Protein 6.2 g/dL (6.6-8.7)
[2023-05-23 10:49] LABS: Glucose Point of Care 139 mg/dL (70-110)
[2023-05-23] MEDS: heparin 5,000 unit/mL INJ 1 mL 5000 UNIT SUBCUT ×2 (10:57→22:22)
[2023-05-23] MEDS: potassium chloride ER 20 mEq Tablet 40 MEQ PO (10:57)
--- NOTE | 2023-05-23 11:18 | PC.SOCIAL ---
Pg 2 IMM Explained to pt Pg 2 IMM. No questions voiced. Provided pt a copy. Initialed, dated, & timed a copy & placed in chart.
--- NOTE | 2023-05-23 14:50 | P.PN_ITS ---
Subjective 2 Subjective: No acute events overnight. Patient states he continues to do better. On 1 L saturating more than 96%. Tmax today morning 102.7 Fahrenheit. Still complains of cough but better shortness of breath. Working with I-S and Acapella. Ambulating in room. Vitals/I&O/Wt Last Vital Signs Temp 99.2 F 05/23/23 10:42 Pulse 68 05/23/23 14:37 Resp 16 05/23/23 14:00 BP 118/73 05/23/23 10:42 Pulse Ox 96 05/23/23 14:00 O2 Del Method Nasal Cannula 05/23/23 14:00 O2 Flow Rate 1 05/23/23 14:00 05/22/23 05/23/23 05/23/23 22:59 06:59 14:59 Intake Total 771.25 / 941.25 100 / 1041.25 50 / 50 Balance 771.25 / 941.25 100 / 1041.25 50 / 50 Weight last 48 hrs Weight 75.495 kg Weight 76.005 kg Physical Exam 2 Narrative: General: No acute distress, AO x3, On nasal cannula, dehydrated, weak and tired appearing HEENT: PERRLA, pupils bilaterally equal and reactive Chest: Normal vesicular breath sounds, occasional rhonchi all over lung lopez, equal good air entry bilaterally CVS: S1-S2 regular, no murmurs, no tachycardia, no gallops, no rubs Abdomen: Soft, nontender, no organomegaly, bowel sounds present Neuro: No focal deficits, no facial deformity, AO x3, power 5/5 in all limbs Data 05/23/23 05:01 05/23/23 08:56 Micro: Microbiology 05/23/23 08:59 Blood Culture - Preliminary Blood SPECIMEN COLLECTED 05/23/23 08:56 Blood Culture - Preliminary Blood SPECIMEN COLLECTED 05/21/23 11:14 Legionella Urinary Antigen - Final Unknown Source 05/21/23 11:14 Bacterial Antigens - Final Urine Kidney A&P Assessment and plan (1) Hypoxia: (2) COVID-19: Hypoxia secondary to COVID-19 pneumonia: Mild disease. Oxygen supplementation keeping saturation over 88%. Dexamethasone 6 mg daily. Remdesivir to finish a 5-day course. DuoNeb every 6 hour, budesonide twice daily Pulmonary toilet with incentive spirometry flutter valve. We will monitor inflammatory markers including CRP, D-dimer every 48 hours. Check sputum culture, procalcitonin, urine Legionella, bacterial antigen, blood culture. Procalcitonin negative. Low suspicion of bacterial infection for now. For now continue with IV ceftriaxone started on admission. Given hypoxia will try to keep patient as negative as possible. Check echocardiogram. Lasix as per fluid status. Strict input output charting, daily weights. (3) Dehydration: Continue with IV fluids with normal saline at 75 cc/h. Monitor for fluid overload. (4) Type 2 diabetes mellitus: Check A1c. Continue with Lantus 10 units twice daily, sliding scale before meals and at bedtime. Carb consistent diet. (5) Hypertension: Goal blood pressure less than 140/90 mmHg. At home takes lisinopril 40 mg oral daily, chlorthalidone 25 mg daily, Coreg 12.5 mg twice daily. Currently blood pressure stable off antihypertensives. Will continue to monitor and restart antihypertensives as needed. (6) Acute kidney injury: Do not have baseline creatinine. Creatinine on admission 1.4 trending down to 1.2. Most likely mild TALON in setting of dehydration. Medical reconciliation done for nephrotoxic drugs. Plan Full code Carb consistent cardiac diet Protonix for PUD prophylaxis Heparin 5000 every 12 hourly for DVT prophylaxis. Plan for the day: Continue with aggressive pulmonary toilet. Continue with dexamethasone for over 10 days. Will finish remdesivir course for 5 days. Out of bed to chair. Continue with nebulization treatment. Blood pressure is better. Continue with home dose of amlodipine. Holding off on Coreg and chlorthalidone. Blood cultures so far negative. Patient continues to have high-grade fever. Continue with IV ceftriaxone. Will repeat blood cultures. No leukocytosis for now. Plan to discharge in next 24 hours after completion of remdesivir course if patient remains at baseline oxygen supplementation. Home O2 evaluation for possible discharge in the next 24 hours. Case management alerted. Attestations 2 Medical Necessity Statement*: Requires further hospitalization for management of hypoxia in setting of COVID- 19 Diagnoses Hypoxia R09.02 COVID-19 U07.1 Dehydration E86.0 Type 2 diabetes mellitus E11.9 Hypertension I10 Acute kidney injury N17.9
[2023-05-23 16:26] LABS: Glucose Point of Care 336 mg/dL (70-110)
[2023-05-23 20:43] LABS: Glucose Point of Care 332 mg/dL (70-110)
[2023-05-23] MEDS: atorvastatin 40 mg Tablet 80 MG PO (22:22)
[2023-05-23] MEDS: remdesivir 100 MG in sodium chloride 0.9% (100 ml) 100 ML IV (22:23)
--- NOTE | 2023-05-23 23:59 | PC.RESP ---
Missed dose, RT in ER for extended amount of time.
[2023-05-24] VITALS (8 sets, daily range): BP systolic 128–131; BP diastolic 65–73; PULSE 61–82; RESP 13–18; TEMP 36.7–37.1; O2SAT 87–96
[2023-05-24] MEDS: ipratropium-albuterol 3 mL Neb INHALATION ×3 (03:23→15:31)
[2023-05-24] MEDS: benzonatate 100 mg Capsule PO ×2 (04:19→12:16)
[2023-05-24 05:01] LABS: Hematocrit 35.6 % (37-53); Mean Corpuscular HGB Conc 33.7 g/dL (30-55); Mean Corpuscular Hemoglobin 29.2 pg (27-33); Mean Corpuscular Volume 86.6 fl (82-101); Mean Platelet Volume 9.7 fL (7.4-10.4); Platelet Count 318 10^3/cmm (157-399); Red Blood Count 4.11 10^6/uL (3.85-5.65); White Blood Count 8.98 10^3/uL (3.29-11.43)
[2023-05-24 05:31] LABS: Alanine Aminotransferase 67 U/L (0-41); Albumin Level 2.9 g/dL (3.5-5.2); Alkaline Phosphatase 62 U/L (40-130); Anion Gap 14.4 (5-19); Aspartate Amino Transferase 62 U/L (0-40); Blood Urea Nitrogen 21 mg/dL (8-23); Calcium 8.2 mg/dL (8.5-10.5); Carbon Dioxide 30 mmol/L (22-29); Chloride 94 mmol/L (98-107); Globulin 3.4 g/dL (1.3-4.6); Glomerular Filtration Rate 84.4 mL/min (90-130); Glucose 218 mg/dL (65-115); Osmolality Calculated 290 mOsm/kg (285-295); Potassium 3.4 mmol/L (3.5-5.1); Sodium 135 mmol/L (136-145); Total Bilirubin 0.6 mg/dL (0.15-1.2); Total Protein 6.3 g/dL (6.6-8.7)
[2023-05-24 05:38] LABS: C Reactive Protein 81.5 mg/L (0.0-4.9); Magnesium 1.7 mg/dL (1.7-2.3); Phosphorus 3.7 mg/dL (2.5-4.5)
[2023-05-24 05:57] LABS: Absolute Segmented Neutrophil 5.5 10/cmm (1.6-7.1); Band Neutrophils Absolute 0.1 10^3/cmm (0.0-1.2); Eosinophils 0 %; Lymphocytes 20 %; Lymphocytes Absolute 1.8 10^3/cmm (1.2-3.4); Monocytes Absolute 1.3 10^3/cmm (0.1-0.6); Segmented Neutrophils 61 %; Slide Review Slide Review Perform; Total Cells Counted 100 (0-100)
[2023-05-24 05:58] LABS: Absolute Neutrophil 5.6 10^3/cmm (1.4-6.5); Platelet Estimate Normal (Normal)
--- NOTE | 2023-05-24 06:00 | XRR_ITS ---
PROCEDURE INFORMATION: Exam: XR Chest Exam date and time: 05/24/2023 8:37 AM Age: 68 years old Clinical indication: Shortness of breath; Additional info: Covid TECHNIQUE: Imaging protocol: Radiologic exam of the chest. Views: 1 view. COMPARISON: CR XR chest 1V portable [id number] 05/22/2023 8:05 AM FINDINGS: Lungs: There is patchy consolidation at the left lung base. Pleural spaces: Unremarkable. No pleural effusion. No pneumothorax. Heart/Mediastinum: Unremarkable. No cardiomegaly. Bones/joints: Unremarkable. XR/XR chest 1V portable [id number] IMPRESSION: Left basilar pneumonia.
[2023-05-24 06:32] LABS: Glucose Point of Care 232 mg/dL (70-110)
[2023-05-24] MEDS: insulin lispro 100 unit/1 mL SUBCUT ×2 (08:31→12:15)
[2023-05-24] MEDS: sennosides-docusate Tablet 1 TAB PO (08:32)
[2023-05-24] MEDS: insulin glargine 100 units/1 mL 10 UNIT SUBCUT (08:32)
[2023-05-24] MEDS: dexamethasone 4 mg Tablet 6 MG PO (08:32)
[2023-05-24] MEDS: aspirin 81 mg EC Tablet PO (08:33)
[2023-05-24] MEDS: duloxetine 60 mg Capsule PO (08:33)
[2023-05-24] MEDS: cefTRIAXone 1,000 MG in sodium chloride 0.9% (plus) 50 ML 100 MG IV (08:33)
[2023-05-24] MEDS: pantoprazole DR 40 mg Tablet PO (08:33)
[2023-05-24] MEDS: amlodipine 10 mg Tablet PO (08:33)
[2023-05-24] MEDS: budesonide 0.5 mg/2 mL Neb INHALATION (09:16)
[2023-05-24 11:44] LABS: Glucose Point of Care 261 mg/dL (70-110)
[2023-05-24] MEDS: heparin 5,000 unit/mL INJ 1 mL 5000 UNIT SUBCUT (12:16)
--- NOTE | 2023-05-24 12:42 | PM.DCS ---
Discharge Providers Date of Admission: 05/21/23 10:31 Date of Discharge: May 24, 2023 Attending Provider at Admission: Damon Bojorquez MD Attending Provider at Discharge: Lew Rangel MD Primary Care Provider: GEOVANNA Velez Diagnoses at Discharge Discharge Diagnosis (1) Hypoxia: Status: Acute (2) COVID-19: Status: Acute (3) Dehydration: Status: Acute (4) Type 2 diabetes mellitus: Status: Acute (5) Hypertension: Status: Acute (6) Acute kidney injury: Status: Acute Reason for Visit Reason for Visit: Low BP / Covid + Brief History: History as per HPI: Moi Jones is a 68 year old male who was diagnosed with COVID-19 this Friday, he started experiencing symptoms last around , patient was discharged home after he was diagnosed with COVID-19 he was not requiring oxygen however he returned because of generalized weakness malaise and low blood pressure. Patient has not noticed diarrhea, or chest pain. He is endorsing generalized weakness, malaise , his last bowel movement was couple days ago., In the ER he was hypotensive required IV fluid bolus which improved his blood pressure at the time of my evaluation he is not requiring oxygen, he is afebrile. Endorsing generalized weakness fatigue still not feeling hungry. Hospital Course Hospital Course Patient was admitted to the hospital further evaluation and management ofdehydration leading to TALON in setting of COVID-19. He was started on IV hydration. During hospitalization he developed hypoxia for which he required minimal oxygen. He was started on treatment with IV remdesivir and dexamethasone. Patient continued on nebulization treatment and aggressive pulmonary toilet. His energy levels have been improving gradually. Blood cultures have been negative. His hospitalization was otherwise unremarkable. During hospitalization he was found to have borderline blood pressures for which his antihypertensives were adjusted. He has been discharged in hemodynamically stable condition after completion of 5-day course of remdesivir on oral dexamethasone for next 7 days and inhalation treatment along with continuation of pulmonary toilet. He is to see his primary care provider within next 1 week. Safe discharge planning was discussed in detail with the patient and his family at bedside. All the questions were answered. Physical Exam Narrative: General: No acute distress, AO x3, On nasal cannula, dehydrated, weak and tired appearing HEENT: PERRLA, pupils bilaterally equal and reactive Chest: Normal vesicular breath sounds, occasional rhonchi all over lung lopez, equal good air entry bilaterally CVS: S1-S2 regular, no murmurs, no tachycardia, no gallops, no rubs Abdomen: Soft, nontender, no organomegaly, bowel sounds present Neuro: No focal deficits, no facial deformity, AO x3, power 5/5 in all limbs Discharge Data Studies Completed and Pending Completed Studies During Hospitalization Category Date Time Status XR chest 1V portable 96605 Q48H Exams 05/22/23 06:00 Completed XR chest 1V portable [id number] Q48H Exams 05/24/23 06:00 Completed XR chest 1V portable [id number] Stat Exams 05/20/23 17:14 Completed CV. echo complete* [id number] Routine Ultrasound 05/21/23 10:28 Completed Pending at discharge Category Date Time Status XR chest 1V portable [id number] Q48H Exams 05/26/23 06:00 Ordered Blood Culture Stat Lab 05/20/23 18:20 Results Blood Culture Stat Lab 05/23/23 08:59 Results Radiology Impressions Chest X-Ray 05/24/23 06:00 IMPRESSION: Left basilar pneumonia. Echocardiogram: CONCLUSIONS Mild concentric LVH. Normal LV systolic function. Estimated LVEF normal at 65%. No significant valvular abnormality noted. Normal chamber sizes. IVC not well visualized, however RV and pulmonary pressure appears to be normal as tricuspid valve gradient is normal. Jennifer Pascal MD (Electronically Signed) Final Date: 21 May 2023 Laboratory Results WBC 8.98 10^3/uL (3.29-11.43) 05/24/23 04:45 RBC 4.11 10^6/uL (3.85-5.65) 05/24/23 04:45 Hgb 12.00 g/dL (11.27-16.99) 05/24/23 04:45 Hct 35.6 % (37-53) L 05/24/23 04:45 MCV 86.6 fl (82-101) 05/24/23 04:45 MCH 29.2 pg (27-33) 05/24/23 04:45 MCHC 33.7 g/dL (30-55) 05/24/23 04:45 RDW 14.0 % (12.1-15.1) 05/24/23 04:45 Plt Count 318 10^3/cmm (157-399) 05/24/23 04:45 MPV 9.7 fL (7.4-10.4) 05/24/23 04:45 Neut % (Auto) 75.2 % 05/23/23 05:01 Lymph % (Auto) Not Reportable 05/24/23 04:45 [place] % (Auto) Not Reportable 05/24/23 04:45 Eos % (Auto) 0.0 % 05/23/23 05:01 Baso % (Auto) 0.1 % 05/23/23 05:01 Neut # (Auto) 7.06 10^3/uL (1.8-7.7) 05/23/23 05:01 Lymph # (Auto) Not Reportable 05/24/23 04:45 [place] # (Auto) Not Reportable 05/24/23 04:45 Eos # (Auto) 0.0 10^3/uL (0.0-0.8) 05/23/23 05:01 Baso # (Auto) 0.0 10^3/uL (0.0-0.1) 05/23/23 05:01 Nucleated RBC % (auto) 0 % 05/23/23 05:01 Total Counted 100 (0-100) 05/24/23 04:45 Atypical Lymphs % 0.0 % (0-5) 05/24/23 04:45 Absolute Neutrophils 5.6 10^3/cmm (1.4-6.5) 05/24/23 04:45 Segmented Neutrophils 61 % 05/24/23 04:45 Abs Segm Neuts (Man) 5.5 10/cmm (1.6-7.1) 05/24/23 04:45 Band Neutrophils 1.0 % 05/24/23 04:45 Abs Band Neuts (Man) 0.1 10^3/cmm (0.0-1.2) 05/24/23 04:45 Absolute Lymphocytes 1.8 10^3/cmm (1.2-3.4) 05/24/23 04:45 Lymphocytes (Manual) 20 % 05/24/23 04:45 Monocytes (Manual) 14.0 % 05/24/23 04:45 Absolute Monocytes 1.3 10^3/cmm (0.1-0.6) H 05/24/23 04:45 Eosinophils (Manual) 0 % 05/24/23 04:45 Absolute Eosinophils 0.0 10^3/cmm (0.0-0.7) 05/24/23 04:45 Basophils (Manual) 0.0 % 05/24/23 04:45 Absolute Basophils 0.0 10^3/cmm (0.0-0.2) 05/24/23 04:45 Metamyelocytes 4.0 % 05/24/23 04:45 Nucleated RBCs # 0.0 /100WBC 05/23/23 05:01 Platelet Estimate Normal (Normal) 05/24/23 04:45 PT 14.20 SECONDS (12.1-14.9) 05/20/23 18:25 INR 1.06 (0.8-1.2) 05/20/23 18:25 Specimen Type Arterial 05/21/23 05:09 Sample Site Brachial, right 05/21/23 05:09 ABG pH 7.44 (7.35-7.45) 05/21/23 05:09 ABG pCO2 38.8 mmHg (35-45) 05/21/23 05:09 ABG pO2 66.7 mmHg (80.0-100.0) L 05/21/23 05:09 ABG PO2/FiO2 Ratio 0 05/20/23 17:29 ABG HCO3 26.5 mmol/L (22-26) H 05/21/23 05:09 ABG Base Excess 2.3 mmol/L (-2.0-2.0) H 05/21/23 05:09 Evan Test N/a 05/21/23 05:09 Hematocrit 34.1 % (42-52) L 05/21/23 05:09 Hgb O2 Saturation 93.0 % (95-100) L 05/20/23 17: Carboxyhemoglobin 1.3 %THgb (0.4-20.1) 05/20/23 17: Methemoglobin < 0.0 % (0.4-1.5) L 05/20/23 17: Total Hemoglobin 11.3 g/dL (14-18) L 05/20/23 17:29 O2 Delivery Device Nc 05/21/23 05:09 O2 Liters/Min 3.0 % 05/21/23 05:09 FiO2 21.0 % 05/20/23 17:29 Bagging Machine Operator ID [email or web address] 05/21/23 05:09 Sodium 135 mmol/L (136-145) L 05/24/23 04:45 Potassium 3.4 mmol/L (3.5-5.1) L 05/24/23 04:45 Chloride 94 mmol/L (98-107) L 05/24/23 04:45 Carbon Dioxide 30 mmol/L (22-29) H 05/24/23 04:45 Anion Gap 14.4 (5-19) 05/24/23 04:45 BUN 21 mg/dL (8-23) 05/24/23 04:45 Creatinine 0.9 mg/dL (0.7-1.2) 05/24/23 04:45 GFR Calculation 84.4 mL/min (90-130) L 05/24/23 04:45 Glucose 218 mg/dL (65-115) H 05/24/23 04:45 POC Glucose 261 mg/dL (70-110) H 05/24/23 11:09 Estimat Average Glucose 223 05/20/23 18:25 Hemoglobin A1c 9.4 % (4.0-6.0) H 05/20/23 18:25 Calculated Osmolality 290 mOsm/kg (285-295) 05/24/23 04:45 Lactic Acid 2.5 mmol/L (0.5-2.2) H 05/20/23 18:25 Lactic Acid (Sepsis) 1.4 mmol/L (0.5-2.2) 05/20/23 21:08 Calcium 8.2 mg/dL (8.5-10.5) L 05/24/23 04:45 Phosphorus 3.7 mg/dL (2.5-4.5) 05/24/23 04:45 Magnesium 1.7 mg/dL (1.7-2.3) 05/24/23 04:45 Iron 14 ug/dL (59-158) L 05/21/23 06:29 TIBC 175 mcg/dl 05/21/23 06:29 % Saturation 8.0 % (20-50) L 05/21/23 06:29 Unsat Iron Binding 161 ug/dL (112-347) 05/21/23 06:29 Ferritin 462 ng/mL (30-400) H 05/21/23 06:29 Total Bilirubin 0.6 mg/dL (0.15-1.2) 05/24/23 04:45 AST 62 U/L (0-40) H 05/24/23 04:45 ALT 67 U/L (0-41) H 05/24/23 04:45 Alkaline Phosphatase 62 U/L (40-130) 05/24/23 04:45 C-Reactive Protein 81.5 mg/L (0.0-4.9) H 05/24/23 04:45 Total Protein 6.3 g/dL (6.6-8.7) L 05/24/23 04:45 Albumin 2.9 g/dL (3.5-5.2) L 05/24/23 04:45 Globulin 3.4 g/dL (1.3-4.6) 05/24/23 04:45 Triglycerides 96 mg/dL (0-150) 05/22/23 05:20 Cholesterol 67 mg/dL (0-200) 05/22/23 05:20 LDL Cholesterol, Calc 19 mg/dL (50-129) L 05/22/23 05:20 Total VLDL Cholesterol 19 mg/dL (0-30) 05/22/23 05:20 HDL Cholesterol 29 mg/dL (60-100) L 05/22/23 05:20 Cholesterol/HDL Ratio 2.31 mg/dL (1.0-5.00) 05/22/23 05:20 Vitamin B12 496 pg/mL (232-1245) 05/21/23 06:29 Folate 19.9 ng/mL (4.5-32.2) 05/22/23 05:20 Procalcitonin 0.43 ng/mL (0-0.5) 05/21/23 06:29 TSH 0.30 uIU/mL (0.27-4.20) 05/21/23 06:29 Urine Color Yellow (Yellow) 05/21/23 11:14 Urine Appearance Clear (CLEAR) 05/21/23 11:14 Urine pH 5 (5-7) 05/21/23 11:14 Ur Specific [place] 1.015 (1.005-1.030) 05/21/23 11:14 Urine Protein Trace (Negative) 05/21/23 11:14 Urine Glucose (UA) 2+ (Normal) H 05/21/23 11:14 Urine Ketones Negative (Negative) 05/21/23 11:14 Urine Blood 2+ (Negative) H 05/21/23 11:14 Urine Nitrate Negative (Negative) 05/21/23 11:14 Urine Bilirubin Neg (Negative) 05/21/23 11:14 Urine Urobilinogen Norm mg/dL (Negative) 05/21/23 11:14 Ur Leukocyte Esterase Negative (Negative) 05/21/23 11:14 Urine RBC Rare /hpf (0-2) 05/21/23 11:14 Urine WBC Rare /hpf (0-5) 05/21/23 11:14 Ur Squamous Epith Cells Rare /hpf (0-5) 05/21/23 11:14 Amorphous Sediment Trace /hpf 05/21/23 11:14 Urine Bacteria Trace /hpf (NONE) 05/21/23 11:14 Urine Mucus 1+ /hpf 05/21/23 11:14 Vitals Last Vital Signs Temp 98.7 F 05/24/23 11:00 Pulse 77 05/24/23 11:00 Resp 16 05/24/23 11:00 BP 130/73 05/24/23 11:00 Pulse Ox 94 05/24/23 11:00 O2 Del Method Nasal Cannula 05/24/23 09:20 O2 Flow Rate 2 05/24/23 09:58 Discharge Plan Discharge Patient Disposition: Home Condition: Stable Prescriptions: New pantoprazole 40 mg Tablet,Delayed Release (Dr/Ec) 40 mg PO DAILY Qty: 14 0RF levofloxacin 750 mg tablet 750 mg PO Q24H 4 Days Qty: 4 0RF Breo Ellipta 50-25 mcg/dose blister with device 1 inh inhalation DAILY 14 Days Qty: 60 0RF Continued metformin 500 mg tablet 500 mg PO DAILY Trulicity 0.75 mg/0.5 mL pen injector 3 mg SUBCUT Q7D Rx Instructions: ON FRIDAY insulin glargine [Lantus U-100 Insulin] 100 unit/mL solution See Rx Instructions .ROUTE .COMPLEX Rx Instructions: 50 unit subcutaneously QAM AND 40 UNITS QPM Zyrtec 10 mg capsule 10 mg PO BEDTIME dexamethasone 6 mg tablet 6 mg PO DAILY Qty: 7 0RF albuterol sulfate 90 mcg/actuation HFA aerosol inhaler 2 inh inhalation Q4H PRN (Reason: shortness of breath or wheezing) Qty: 8.5 0RF benzonatate 100 mg capsule 100 mg PO Q6H PRN (Reason: cough) Qty: 20 0RF atorvastatin 80 mg tablet 80 mg PO BEDTIME aspirin 81 mg Tablet,Delayed Release (Dr/Ec) 81 mg PO DAILY amlodipine 10 mg tablet 10 mg PO DAILY magnesium 200 mg Tablet 200 mg PO DAILY duloxetine 30 mg capsule,delayed release(DR/EC) 30 mg PO DAILY duloxetine 60 mg capsule,delayed release(DR/EC) 60 mg PO DAILY sildenafil (pulm.hypertension) 20 mg tablet See Rx Instructions .ROUTE .COMPLEX Rx Instructions: 20 mg orally 30 MIN PRIOR TO SEXUAL ACTIVITY Held carvedilol 12.5 mg tablet 12.5 mg PO BID Hold Instructions: Resume on 05/30/23. lisinopril 40 mg tablet 40 mg PO DAILY Hold Instructions: Resume on 05/30/23. Discontinued potassium chloride 10 mEq capsule, extended release 10 meq PO DAILY chlorthalidone 25 mg tablet 25 mg PO DAILY Discharge Orders: Discharge Order (Routine); Ordered 05/24/23 Ordered By: Lew Rangel Other Ambulatory Orders: DME: Oxygen (Order) Location: None Selected Ordered By: Lew Rangel Referrals: Genna Baumann FNP [Primary Care Provider] - 7-10 days (Please call Friday to schedule an appointment with Genna Baumann) Discharge Diet: Regular Discharge Activity: Resume usual activity and Increase activity as tolerated Patient Instructions: Opioid Safety Activity Restrictions/Additional Instructions: Advised to take inhalation treatment with Breo daily. Advised to continue working with incentive spirometry and flutter valve while at home. Advised to continue taking dexamethasone 6 mg for next 7 days. Advised to follow-up with his primary care provider within the next 4 to 7 days. Can take his COVID-19 vaccination in 3 months. Advised to continue following social distancing and isolation protocol for next 10 days. Advised to come back to the ER if fever of more than 101 Fahrenheit, more difficulty breathing than usual or requiring higher oxygen supplementation. Discharge Attestations Time Spent in Discharge Care*: greater than 30 min Specific Discharge Activities: educating patient, educating and/or supporting family/caregiver, discussing with pcp/other providers, discussing with case operator/social workers/dc planners, documenting/other paperwork and evaluating patient/reviewing data Quality Metrics Clinical Quality Measures [ No reported AMI, CVA or VTE this stay] Coding Level of Care Code 75339 Total time (in minutes) for Discharge: 50 Diagnoses Hypoxia R09.02 COVID-19 U07.1 Dehydration E86.0 Type 2 diabetes mellitus E11.9 Hypertension I10 Acute kidney injury N17.9
--- NOTE | 2023-05-25 14:12 | PC.NURSE ---
Dr. Penaloza changed Breo prescription to Advair disk as patient's insurance will not cover the Breo
== END 2023-05-24 16:51 | disposition home or self-care (01) | DRG 177 ==
LOC: ER 20:32 → MEDSURG 05-21 00:25
PROVIDERS: Admitting Provider Internal Medicine; Emergency Provider Emergency Medicine; PCP Nurse Practitioner Family; Visit Provider Student in an Organized Health Care Education/Training Program
DX: U07.1 COVID-19 (principal); J12.82 Pneumonia due to coronavirus disease 2019; N17.9 Acute kidney failure, unspecified; I10 Essential (primary) hypertension; E11.9 Type 2 diabetes mellitus without complications; Z86.73 Personal history of transient ischemic attack (TIA), and cerebral infarction without residual deficits; G47.00 Insomnia, unspecified; R09.02 Hypoxemia; E86.0 Dehydration
CPT/HCPCS: 36415; 36416; 36600; 71045; 80048; 80053; 80061; 81001; 82607; 82728; 82746; 82803; 82805; 82962; 83036; 83540; 83550; 83605; 83735; 84100; 84145; 84443; 85007; 85025; 85610; 86140; 86403; 87040; 87449; 93005; 93306; 94640; 94664; 94760; 94762; 96365; 96367; 96372; 97110; 97116; 97161; 97530; 99285; G0378; J0248; J0456; J0696; J1644; J1815; J7030; J7040; J7050; J7626; J8540

== ENCOUNTER 2024-04-15 14:44 | Outpatient (CLI) | payer MEDICARE, SELFPAY ==
--- NOTE | 2024-04-15 14:48 | CT_ITS ---
WS: [id number] CT HEAD TECHNIQUE: Noncontrast CT of the head obtained from the skullbase to the vertex. CLINICAL INFORMATION: MEMORY CHANGES COMPARISON: None. DLP: 1111.[address] scans at [facility] use at least one of these dose optimization techniques: automated e xposure control; mA and/or kV adjustment per patient size (includes targeted exams where dose is matc hed to clinical indication); or iterative reconstruction. FINDINGS: No evidence of intracranial hemorrhage or mass effect. Ventricular system and basal cisterns are love nt. Moderate small vessel changes with moderate parenchymal volume loss. Dense vascular calcification . Multiple chronic lacunar infarcts in the basal ganglia. Chronic infarct RIGHT temporal lobe about t he temporal horn and atrium. 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 Paranasal sinuses and mastoid air cells are well aerated. .Normal visualized soft tissues. CT/CT head wo con* [id number] IMPRESSION: 1. No evidence of intracranial hemorrhage or mass effect. 2. Moderate small vessel changes with moderate parenchymal volume loss worse i n the frontal lobes. 3. Multiple chronic lacunar infarcts in the LEFT. Than RIGHT basal ganglia. 4. 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 5. Chronic ischemia RIGHT temporal lobe about the temporal horn and atrium. 6. Vascular calcification. 7. No acute intracranial findings.
== END 2024-04-15 14:45 | disposition home or self-care (01) ==
PROVIDERS: PCP Nurse Practitioner Family; Visit Provider Nurse Practitioner Family
DX: I63.543 Cerebral infarction due to unspecified occlusion or stenosis of bilateral cerebellar arteries (principal); G31.89 Other specified degenerative diseases of nervous system; R41.3 Other amnesia; Z86.79 Personal history of other diseases of the circulatory system
CPT/HCPCS: 70450